=== PATIENT | male | born 1995 | race Caucasian/White ===

== ENCOUNTER → 2017-08-08 | Outpatient (CLI) | payer BC ==
[2017-08-08 13:13] LABS: HEMATOCRIT 46.2 % (42-52); MEAN CELL VOLUME 92.4 fL (80-100); MEAN CORPUSCULAR HEMOGLOBIN 32.2 pg (25-34); MEAN CORPUSCULAR HGB CONC 34.8 g/dl (32-36); MEAN PLATELET VOLUME 9.6 fL (7.4-10.4); PLATELET COUNT 242 K/uL (130-400); WHITE BLOOD COUNT 10.73 K/uL (4.8-10.8)
[2017-08-08 13:39] LABS: ALT/SGPT 20 U/L (12-78); AST/SGOT 19 U/L (15-37); CHOLESTEROL 164 mg/dl (0-200); TRIGLYCERIDES 92 mg/dl (0-150)
== END | disposition home or self-care (01) ==
LOC: C.LAB 11:51
PROVIDERS: ATTEND Nurse Practitioner Family
DX: L70.0 Acne vulgaris (principal)